=== PATIENT | female | born 1970 | race Caucasian/White ===

== ENCOUNTER 2019-12-10 14:56 | Emergency (ER) | payer OTHER, SELFPAY ==
[2019-12-10 14:58] VITALS: BP 143/97; PULSE 77; RESP 18; TEMP 37.3; O2SAT 98; BMI 31.6
--- NOTE | 2019-12-10 16:13 | EKG12_ITS ---
Test Reason : ABDOMINAL PAIN Blood Pressure : / mmHG Vent. Rate : 060 BPM Atrial Rate : 060 BPM P-R Int : 124 ms QRS Dur : 074 ms QT Int : 430 ms P-R-T Axes : 022 039 022 degrees QTc Int : 430 ms Normal sinus rhythm Normal ECG Confirmed by CHANTELLE SANDOVAL ([id number]), material expeditor JOSH LORA ([id number]) on 12/15/2019 11:57:21 AM Referred By: RORY Confirmed By:CHANTELLE SANDOVAL
--- NOTE | 2019-12-10 16:22 | ED.DCSUM_ITS ---
History of Present Illness Chief Complaint: Abd Pain Informant: Patient Narrative: 49-year-old female presents with epigastric pain. She states that she has been having this pain for the last couple of weeks. Initially she thought it was her GERD and she has been taking omeprazole and had some improvement however the pain is become more constant now she feels pressure in her back. She states when it initially started she became diaphoretic and had trouble taking a deep breath however she has not had return of those symptoms. She denies a cough or fever. She states it is worse with food and she does admit to eating red sauce as well as spicy sausage as well as a couple of drinks in the last couple of weeks. She is not a heavy drinker. She states her gallbladder is been removed. She has slightly constipated but is having bowel movements. Past Medical History - Allergies and Home Meds Allergies/Adverse Reactions: Allergies No Known Allergies Allergy (Verified 12/10/19 15:00) Primary Care Physician: Bill Valdez MD [STAFF PHYSICIAN] - Prior records reviewed: Yes Surgical History: cholecystectomy Smoking Status: Former smoker Alcohol: Occasional Drugs: None Review of Systems General: Denies: Chills, Fever, Malaise Eyes: Denies: Visual changes - bilaterally, Diplopia ENT: Reports: Sore throat - Sometimes has a sore throat she attributes to GERD. Denies: Rhinorrhea Respiratory: Reports: Dyspnea - Still symptoms however this is resolved Gastrointestinal: Reports: Abdominal pain - Gastric pain, Nausea, Constipation Genitourinary: Reports: Dysuria Musculoskeletal: Denies: Myalgias, Arthralgias Skin: Denies: Rash Neurological: Denies: Headache Psych: Denies: Depression, Anxiety Physical Exam Vital Signs/Narrative: Vital Signs Temp Pulse Resp BP Pulse Ox 12/10/19 14:58 99.1 F 77 18 143/97 H 98 Inital Vital Signs reviewed: Yes General: Well nourished, No Acute Distress Head: Normocephalic Eyes: Perrl, EOMI. Negative for: Scleral icterus ENT: Moist mucous membranes Cardiovascular: Regular rate, Regular rhythm Respiratory: No distress, CTA bilaterally Abdomen: Soft, - - Mild reproducible epigastric pain. Abdomen is non- peritoneal. Extremities: Nontender Skin: Normal color, No rash Neurological: Alert, Oriented x3 Psychological: Normal affect Diagnostic/Tx/Re-eval Clinical Impression(s) from Imaging Studies Chest X-Ray 12/10/19 17:20 IMPRESSION: Normal x-ray examination of the chest. Electronically Signed: Dagoberto Green MD at 17:38 EDT , Service support , Laboratory Data 12/10/19 12/10/19 12/10/19 16:15 16:15 17:00 WBC 6.8 RBC 4.63 Hgb 13.7 Hct 41.5 MCV 89.6 MCH 29.6 MCHC 33.0 RDW Std Deviation 39.6 RDW Coeff of Sakina 12.2 Plt Count 290 MPV 11.4 Immature Gran % (Auto) 0.300 Neut % (Auto) 67.2 Lymph % (Auto) 22.7 [place] % (Auto) 8.2 Eos % (Auto) 1.0 Baso % (Auto) 0.6 Absolute Neuts (auto) 4.6 Absolute Lymphs (auto) 1.55 Nucleated RBC % 0 Sodium 138 Potassium 3.3 L Chloride 105 Carbon Dioxide 29.0 Anion Gap 4 L BUN 9 Creatinine 0.82 Estim Creat Clear Calc 64.92 Est GFR (MDRD) Af Amer 95 Est GFR (MDRD) Non-Af 78 BUN/Creatinine Ratio 11.0 Glucose 84 Calcium 8.7 Total Bilirubin 0.80 Direct Bilirubin 0.16 AST 12 L ALT 16 Alkaline Phosphatase 56 Total Protein 7.4 Albumin 3.6 Globulin 3.8 Albumin/Globulin Ratio 0.9 Lipase 65 L Urine Color Yellow Urine Clarity Clear Urine pH 6.0 Ur Specific [place] 1.010 Urine Protein Negative Urine Glucose (UA) Normal Urine Ketones 15 H Urine Occult Blood Negative Urine Nitrite Negative Urine Bilirubin Negative Urine Urobilinogen Normal Ur Leukocyte Esterase Negative Urine RBC 0 SEEN Urine WBC 0 SEEN Ur Squamous Epith Cells 0-5 SEEN Urine Bacteria RARE Urine Mucus 0 SEEN - Rhythm Strip Rhythm Strip: Sinus Rhythm Rate: 60 - EKG Initial EKG Interpretation: Sinus Rhythm, No Acute Injury Pattern - Medical Decision Making Patient was seen and evaluated for epigastric pain. She had concern that it is more than just GERD. She has had pretty persistent pain for the last day and her EKG is normal. Troponins negative. LFTs and lipase are normal. She is given a GI cocktail with some improvement. We did discuss possibly doing a CT of the abdomen pelvis however she does not have abnormal lab work. I did do a chest x-ray which was normal. Patient will be discharged home with Carafate. She is counseled on bland diet. Impression: 1. Epigastric pain 2. History of GERD ED Disposition - Plan for ED Patient: Disposition: Home or Assisted Living Diagnosis: Gastritis Instructions: ED Gastritis Prescriptions: Sucralfate [Carafate] 1 gm PO 4X/DAY #20 udc Prescription Printed Referrals: Bill Valdez MD [STAFF PHYSICIAN] -
[2019-12-10 16:58] LABS: Absolute Lymphocyte Count 1.55 X10^3/uL (0.83-4.51); Absolute Neutrophil Count 4.6 X10^3/uL (2.0-7.7); Basophil# 0.04 X10^3/uL; Basophil% 0.6 % (0-1); Eosinophil# 0.07 X10^3/uL; Hematocrit 41.5 % (37-47); Hemoglobin 13.7 g/dL (12.0-15.0); Lymphocyte # 1.55 X10^3/ul (4.0); Lymphocyte % 22.7 % (19-41); Mean Corpuscular Hgb 29.6 pg (27.0-32.0); Mean Corpuscular Volume 89.6 fL (81-99); Mean Platelet Vol. 11.4 fl (6.2-12.0); Monocyte# 0.56 X10^3/uL; Monocyte% 8.2 % (0-10); NRBC Flagged by Analyzer 0 % (0-5); Neutrophil % 67.2 % (47-70); Platelet Count 290 K/mm3 (150-450); RBC Distribution Width CV 12.2 % (11.6-14.6); RBC Distribution Width SD 39.6 fl (35.1-43.9); Red Blood Count 4.63 M/mm3 (4.2-5.4); White Blood Count 6.8 K/mm3 (4.4-11.0)
[2019-12-10 17:09] LABS: Mucous, Urine 0 SEEN /hpf (<or=2+); Red Blood Cells-Urine 0 SEEN /hpf (0-5); White Blood Cells 0 SEEN /hpf (0-5)
[2019-12-10 17:18] LABS: Color, Urine Yellow (Yellow); Glucose, Dipstick Normal (Normal); Ketone-Dipstick 15 mg/dl (Negative); Leukocyte Esterase-Dipstick Negative /ul (Negative); Nitrite-Dipstick Negative (Negative); Occult Blood-Urine Negative /ul (Negative); Protein-Dipstick Negative (Negative); Urine Bilirubin Dipstick Negative (Negative); Urine Clarity Clear (Clear); Urine Urobilinogen Normal (Normal)
--- NOTE | 2019-12-10 17:20 | RAD_ITS ---
STUDY: X-RAY CHEST REASON FOR EXAM: Female, 49 years old. EPIGASTRIC PAIN TECHNIQUE: Single AP portable view of the chest. COMPARISON: CT of the chest 02/23/2012. FINDINGS: The lungs are clear and expanded. There is no demonstrated pleural abnormality. Normal size heart. Normal mediastinum and jac. Normal visualized pulmonary arteries. Normal visualized aortic arch and descending thoracic aorta. Normal visualized thoracic spine. Normal visualized ribs, clavicles, and shoulders. There is no demonstrated abnormality of the visualized soft tissue structures of the upper abdomen. RAD/Chest 1 View (Portable) IMPRESSION: Normal x-ray examination of the chest. Electronically Signed: Dagoberto Green MD at 17:38 EDT , Service support ,
[2019-12-10 17:24] LABS: Bacteria RARE /hpf (None Seen); Squamous Epithelial Cells - UA 0-5 SEEN /hpf (5-10)
[2019-12-10 17:27] LABS: ALB/GLOB Ratio 0.9 RATIO (0.9-2.4); AST(SGOT) 12 U/L (15-37); Alanine Aminotransfer ALT/SGPT 16 U/L (13-56); Albumin, Serum 3.6 g/dL (3.2-5.0); Alkaline Phosphatase 56 U/L (45-117); Anion Gap 4 (5-15); BUN 9 mg/dL (7-18); Bilirubin, Direct 0.16 mg/dL (0.00-0.30); Calcium,Total 8.7 mg/dL (8.5-10.1); Chloride 105 mmol/L (98-107); Creatinine, Serum 0.82 mg/dL (0.55-1.02); EST Glomerular Filtration Rate 78 mL/min (>60); Est Glom Filt Rate - Afr Amer 95 mL/min (>60); Estimated Creatinine Clearance 64.92 ml/min; Globulin 3.8 g/dL (2.2-4.2); Glucose 84 mg/dL (74-106); Lipase 65 U/L (73-393); Potassium 3.3 mmol/L (3.5-5.1); Protein, Total 7.4 g/dL (6.4-8.2); Sodium Level 138 mmol/L (136-145)
[2019-12-10 18:22] VITALS: BP 133/83; PULSE 60; RESP 15; O2SAT 99
--- NOTE | 2019-12-12 13:34 | ED.RN ---
pharmacy given direction for 1 g 4 x a day for [address] Huggins consulted on this
== END 2019-12-10 18:24 | disposition home or self-care (01) ==
PROVIDERS: Emergency Provider Student in an Organized Health Care Education/Training Program; PCP Internal Medicine
DX: R10.13 Epigastric pain (principal); K21.9 Gastro-esophageal reflux disease without esophagitis; Z87.891 Personal history of nicotine dependence; Z79.899 Other long term (current) drug therapy
CPT/HCPCS: 71045; 80053; 80076; 81001; 83690; 85025; 93005; 99283; A4216; J2405

== ENCOUNTER 2020-08-12 04:00 | Emergency (ER) | payer OTHER, SELFPAY ==
[2020-08-12 04:01] VITALS: BP 158/84; PULSE 72; RESP 16; TEMP 35.9; O2SAT 100; BMI 33.3
--- NOTE | 2020-08-12 04:09 | EKG12_ITS ---
Test Reason : DYSRHYTHMIA Blood Pressure : / mmHG Vent. Rate : 069 BPM Atrial Rate : 069 BPM P-R Int : 118 ms QRS Dur : 086 ms QT Int : 406 ms P-R-T Axes : 069 051 035 degrees QTc Int : 435 ms Normal sinus rhythm Normal ECG Confirmed by JOSE GARSIA, KASEY ([id number]), fashion editor BUDDY JACKSON ([id number]) on 08/16/2020 1:27:08 PM Referred By: CL Confirmed By:LINWOOD GARCIA MD
--- NOTE | 2020-08-12 04:09 | RAD_ITS ---
STUDY: X-RAY CHEST REASON FOR EXAM: Female, 49 years old. chest pain TECHNIQUE: AP COMPARISON: 12/10/2019 FINDINGS: The lungs are clear and expanded. There is no demonstrated pleural abnormality. Normal size heart. Normal mediastinum and jac. Normal visualized pulmonary arteries. Normal visualized aortic arch and descending thoracic aorta. Normal visualized thoracic spine. Normal visualized ribs, clavicles, and shoulders. There is no demonstrated abnormality of the visualized soft tissue structures of the upper abdomen. RAD/Chest 1 View (Portable) IMPRESSION: Negative x-ray examination of the chest. No interval change. Electronically Signed: Ronan Ruelas MD at 4:50 EDT Tel , Service support ,
--- NOTE | 2020-08-12 04:09 | ED.VIS.GEN ---
History of Present Illness Chief Complaint: Palpitations Informant: Patient Narrative: 49-year-old female with no significant past medical history presents with concern for palpitations. States that she received the first Covid vaccine 4 days ago. States that the next day overnight she began having an internal humming. States that she felt like she was having palpitations. States it is improved since that time she is having difficulty sleeping. Denies any fever, chills, nausea, vomiting, chest pain, shortness of breath, abdominal pain, urinary symptoms. Past Medical History - Allergies and Home Meds Allergies/Adverse Reactions: Allergies phenazopyridine Adverse Reaction (Verified 08/12/20 04:09) Other tingling sensation Primary Care Physician: Carissa Lockhart MD [Primary Care Provider] - Prior records reviewed: Yes Past Medical History: None Surgical History: cholecystectomy Lives: Spouse/ Significant Other Smoking Status: Never smoker Alcohol: None Drugs: None Review of Systems General: Denies: Chills, Fever, Sweats Eyes: Denies: Visual changes - bilaterally, Diplopia ENT: Denies: Rhinorrhea, Sore throat Cardiovascular: Reports: Palpitations. Denies: Chest pain Respiratory: Denies: Dyspnea, Cough, Dyspnea on exertion Gastrointestinal: Denies: Abdominal pain, Nausea, Vomiting, Diarrhea, Melena, Hematochezia Genitourinary: Denies: Dysuria, Hematuria, Frequency Musculoskeletal: Denies: Back pain, Extremity Pain Skin: Denies: Rash, Wounds Neurological: Denies: Headache, Weakness, Numbness Physical Exam Vital Signs/Narrative: Vital Signs Temp Pulse Resp BP Pulse Ox 08/12/20 04:01 96.6 F L 72 16 158/84 H 100 Inital Vital Signs reviewed: Yes General: Well nourished, Well developed, No Acute Distress Head: Normocephalic, Atraumatic Eyes: Perrl, EOMI ENT: Moist mucous membranes, No rhinorrhea Neck: Supple, Nontender Cardiovascular: Regular rate, Regular rhythm, No murmurs Respiratory: No distress, CTA bilaterally, Chest nontender Abdomen: Soft, Nontender, Nondistended, Normal bowel sounds Back: Nontender, Normal Inspection Extremities: Nontender, No edema Skin: Normal color, No rash Neurological: Alert, Oriented x3, Cranial nerves II-XII grossly intact, Normal Strength, Normal Sensation Psychological: Normal affect, Normal Mood Diagnostic/Tx/Re-eval Chest X-Ray - ED: 1 View, Read by ED Physician, Read by Radiologist, Normal Clinical Impression(s) from Imaging Studies Chest X-Ray 08/12/20 04:09 IMPRESSION: Negative x-ray examination of the chest. No interval change. Electronically Signed: Ronan Ruelas MD at 4:50 EDT Tel , Service support , Laboratory Data 08/12/20 08/12/20 04:15 04:15 WBC 8.8 RBC 4.44 Hgb 13.0 Hct 39.4 MCV 88.7 MCH 29.3 MCHC 33.0 RDW Std Deviation 40.5 RDW Coeff of Sakina 12.5 Plt Count 274 MPV 11.4 Immature Gran % (Auto) 0.200 Neut % (Auto) 54.9 Lymph % (Auto) 34.8 [place] % (Auto) 7.7 Eos % (Auto) 1.8 Baso % (Auto) 0.6 Absolute Neuts (auto) 4.8 Absolute Lymphs (auto) 3.06 Nucleated RBC % 0 Sodium 140 Potassium 3.1 L Chloride 106 Carbon Dioxide 30.0 Anion Gap 4 L BUN 15 Creatinine 0.86 Estim Creat Clear Calc 61.90 Est GFR (MDRD) Af Amer 90 Est GFR (MDRD) Non-Af 74 BUN/Creatinine Ratio 17.5 Glucose 92 Calcium 8.8 Magnesium 2.1 Troponin I < 0.015 TSH 9.08 H - Rhythm Strip Rhythm Strip: Sinus Rhythm Rate: 69 Ectopy: None - EKG Initial EKG Interpretation: Sinus Rhythm - NSR at 69 bpm. AL interval of 118 ms. QTC of 435 ms. No evidence of ST elevation or depression at this time. - Medical Decision Making Patient appears well and nontoxic. Vital signs within normal limits. EKG nonischemic. Troponin negative. CXR interpreted by myself shows no evidence of infiltrate or cardiomegaly. Radiology concurs. Patient found to be hypokalemic which was replaced by mouth and patient will be given potassium for home. Patient also incidentally found to have an elevated TSH which she is made aware of and will follow up with her primary care physician about. Unclear the cause of the patient's symptoms however she will be also be given some hydroxyzine to help her sleep. Asked to follow-up with primary care within 48 hours. Asked to return for new or worsening symptoms. Patient agreeable and discharged home in stable condition. Impression: 1. Hypokalemia 2. Palpitations 3. Elevated TSH ED Disposition - Plan for ED Patient: Disposition: Home or Assisted Living Instructions: ED Palpitations Prescriptions: Potassium Chloride 40 meq PO DAILY #10 tab.er.prt Prescription Printed hydrOXYzine pamoate capsule [Vistaril pamoate capsule] 25 mg PO QHS #12 capsule Prescription Printed Referrals: Carissa Lockhart MD [Primary Care Provider] - 2 Days Additional Instructions: Your TSH was incidentally found to be elevated. Please discuss this with your family physician.
[2020-08-12 04:28] LABS: Absolute Lymphocyte Count 3.06 X10^3/uL (0.83-4.51); Absolute Neutrophil Count 4.8 X10^3/uL (2.0-7.7); Basophil# 0.05 X10^3/uL; Basophil% 0.6 % (0-1); Eosinophil# 0.16 X10^3/uL; Eosinophils% 1.8 % (0-5); Hematocrit 39.4 % (37-47); Lymphocyte # 3.06 X10^3/ul (4.0); Lymphocyte % 34.8 % (19-41); Mean Corpuscular Hgb 29.3 pg (27.0-32.0); Mean Corpuscular Volume 88.7 fL (81-99); Mean Platelet Vol. 11.4 fl (6.2-12.0); Monocyte# 0.68 X10^3/uL; Monocyte% 7.7 % (0-10); NRBC Flagged by Analyzer 0 % (0-5); Neutrophil # 4.82 X10^3/uL (2.7-7.7); Neutrophil % 54.9 % (47-70); Platelet Count 274 K/mm3 (150-450); RBC Distribution Width CV 12.5 % (11.6-14.6); RBC Distribution Width SD 40.5 fl (35.1-43.9); Red Blood Count 4.44 M/mm3 (4.2-5.4); White Blood Count 8.8 K/mm3 (4.4-11.0)
[2020-08-12 04:53] LABS: Anion Gap 4 (5-15); BUN 15 mg/dL (7-18); BUN/Creat Ratio 17.5 RATIO (10-20); Calcium,Total 8.8 mg/dL (8.5-10.1); Chloride 106 mmol/L (98-107); Creatinine, Serum 0.86 mg/dL (0.55-1.02); EST Glomerular Filtration Rate 74 mL/min (>60); Est Glom Filt Rate - Afr Amer 90 mL/min (>60); Glucose 92 mg/dL (74-106); Magnesium 2.1 mg/dL (1.6-2.6); Potassium 3.1 mmol/L (3.5-5.1); Sodium Level 140 mmol/L (136-145); Thyroid Stim Hormone (TSH) 9.08 uIU/mL (0.358-3.74)
[2020-08-12] MEDS: Potassium Chloride Oral Tablet 20 MEQ 40 MEQ PO (05:11)
[2020-08-12 05:17] VITALS: BP 119/76; PULSE 66; RESP 18; O2SAT 100
== END 2020-08-12 05:17 | disposition home or self-care (01) ==
PROVIDERS: Emergency Provider Emergency Medicine; PCP Internal Medicine
DX: E87.6 Hypokalemia (principal); R00.2 Palpitations; R94.6 Abnormal results of thyroid function studies
CPT/HCPCS: 71045; 80048; 83735; 84443; 84484; 85025; 93005; 99285

== ENCOUNTER 2021-10-19 16:56 | Emergency (ER) | payer OTHER, SELFPAY ==
[2021-10-19 16:57] VITALS: BP 150/85; PULSE 88; RESP 17; TEMP 36.9; O2SAT 98; BMI 32.5
--- NOTE | 2021-10-19 17:18 | EDS_ITS ---
HPI HPI - URI History of Present Illness Chief Complaint: Sore Throat Narrative Narrative: MildPatient is on day 4 or 5 of COVID, she feels better she has not fever, today she presents with a sore throat. She has no voice changing, no difficulty swallowing. No difficulty breathing. She does not have a cough. ROS ROS ED ROS Narrative Past medical history: Reviewed Medications: Reviewed Social history: Noncontributory Review of systems: All systems negative except as indicated General: Fevers improved Eyes: No visual changes ENT: Sore throat as in HPI Neck: No neck pain Cardiovascular: No chest pain Respiratory: No shortness of breath or cough Gastrointestinal: No abdominal pain, nausea vomiting or diarrhea Genitourinary: No dysuria Musculoskeletal: Denies current myalgias no difficulty with ambulation Skin: No rash Neurological: No memory loss, confusion or any focal weakness Psych: No recent behavioral changes Hematologic: No easy bleeding or easy bruising PFSH PFSH Home Medications Potassium Chloride 40 meq PO DAILY #10 tab.er.prt 08/12/20 [Rx Last Taken Unknown] hydroxyzine pamoate 25 mg PO QHS #12 capsule 08/12/20 [Rx Last Taken Unknown] Allergy/AdvReac Type Severity Reaction Status Date / Time phenazopyridine AdvReac Other Verified 10/19/21 16:57 Social History Smoking Status: Never smoker EXAM Physical Exam Narrative Exam Narrative: Physical exam Vitals are normal General: Well nourished, Well developed, No Acute Distress Head: Normocephalic, Atraumatic Eyes: Conjunctiva not pale ENT: Moist mucous membranes. She has a normal voice, no stridor. Some slight p ostnasal drip but no pharyngeal erythema or exudates. Normal uvula. Normal soft palate Neck: Supple, Nontender, No lymphadenopathy Cardiovascular: Regular rate, Regular rhythm Respiratory: No distress, CTA bilaterally Abdomen: Soft, Nontender, Nondistended Back: Nontender, Normal Inspection. Negative for: CVA tenderness Extremities: Nontender, No edema Skin: Normal color, No rash Neurological: Alert, Normal Strength, Normal Sensation Psychological: Normal affect Const Vital Signs: 10/19/21 16:57 Temperature 98.4 F Temperature Source Temporal Pulse Rate 88 Respiratory Rate 17 Blood Pressure 150/85 H Blood Pressure Mean 106 Pulse Ox 98 Oxygen Delivery Method Room Air MDM MDM MDM Narrative Medical decision making narrative: Patient has a normal voice, she is breathing comfortably she appears well and her vitals are normal. There is no signs or symptoms of a deep infection. I will give her Decadron if any changes she is to return to Discharge Plan Triage Chief Complaint: Sore Throat ED Provider: Rico Alvares Dx/Rx/DC Orders Clinical Impression: COVID, Pharyngitis Instructions: ED Pharyngitis, Viral Prescriptions: No Action Potassium Chloride 20 MEQ Tab.Er.Prt 40 meq PO DAILY Qty: 10 RF: 0 hydroxyzine pamoate 25 MG capsule 25 mg PO QHS Qty: 12 RF: 0 Primary Care Provider: Carissa Lockhart Referrals: Carissa Lockhart MD [Primary Care Provider] - 2 Days Disposition Disposition: Home, Self Care
[2021-10-19] MEDS: dexAMETHasone 4 MG Tablet 12 MG PO (17:33)
[2021-10-19 17:37] VITALS: PULSE 82; RESP 17; O2SAT 97
== END 2021-10-19 17:40 | disposition home or self-care (01) ==
PROVIDERS: Emergency Provider Emergency Medicine; PCP Internal Medicine; Visit Provider Emergency Medicine
DX: U07.1 COVID-19 (principal); J02.9 Acute pharyngitis, unspecified
CPT/HCPCS: 99283